=== PATIENT | male | born 1950 | race Caucasian/White ===

== ENCOUNTER → 2020-09-11 | Outpatient (CLI) | payer OTHER ==
--- NOTE | 2020-09-11 12:10 | 2DMMODE ---
[facility] [place] [address] 2 D/M-MODE ECHOCARDIOGRAM Name: BAMBI MALHOTRA Room #: REG ORTIZ [facility]org[facility].#: [id number] Admission: 09/11/20 Attend Phys: Wallace Jacobsen MD Discharge: Date of : 48 Report #: [id number] THIS REPORT FOR: cc: Myah Ledesma MD, Avan D. MD Park, Jin S. MD ~ APPROVED REPORT Study performed: 09/11/2020 10:57:36 EXAM: Comprehensive 2D, Doppler, and color-flow Echocardiogram Patient Location: Out-Patient Status: routine BSA: 1.97 HR: 70 bpm BP: 120/70 mmHg Rhythm: NSR/Frequent PVCs Other Information Study Quality: Adequate Technically limited study due to lung artifact. Indications CAD. Hx: MV and TV repairs. 2D Dimensions RVDd: 34.94 mm IVSd: 11.18 (7-11mm) LVOT Diam: 26.66 (18-24mm) LVDd: 48.63 mm PWd: 9.93 (7-11mm) Ascending Ao: 34.26 (22-36mm) LVDs: 37.32 (25-40mm) Aortic Root: 35.45 mm Volumes Left Atrial Volume (Systole) Single Plane 4CH: 52.31 mL Single Plane 2CH: 65.53 mL LA ESV Index: 35.00 mL/m2 Aortic Valve AoV Peak [place].: 1.36 m/s AO Peak Gr.: 7.42 mmHg LVOT Max P.84 mmHg [facility] [address] [place] [address] 2 D/M-MODE ECHOCARDIOGRAM Name: BAMBI MALHOTRA Room #: REG [facility].#: [id number] Admission: 09/11/20 Attend Phys: Wallace Jacobsen MD Discharge: Date of : 48 Report #: [id number] LVOT Max V: 0.84 m/s LILLIANA Vmax: 3.45 cm2 Mitral Valve E/A Ratio: 110.0 MV Decel. Time: 263.20 ms MV E Max [place].: 1.10 m/s MV A [place].: 0.01 m/s MV PHT: 76.33 ms MVA (PHT): 2.44 cm2 IVRT: 106.11 ms Pulmonary Valve PV Peak [place].: 1.11 m/s PV Peak Gr.: 4.97 mmHg Tricuspid Valve RAP Estimate: 5.00 mmHg Left Ventricle The left ventricle is normal size. There is normal left ventricular wall thickness. Left ventricular systolic function is normal. LVEF is 55%. Mild diastolic dysfunction is present (impaired relaxation pattern). Right Ventricle The right ventricle is normal size. The right ventricular systolic function is normal. Atria Left atrium is mildly dilated. The right atrium size is normal. Aortic Valve The aortic valve is normal in structure. Trace aortic regurgitation. There is no aortic valvular stenosis. Mitral Valve History of MV repair. Peak pressure gradient of 8mmHg; mean of 3mmHg. Mild mitral regurgitation. No evidence of mitral valve stenosis. Tricuspid Valve History of TV repair. Peak gradient of 5mmHg; mean of 1mmHg. There is no tricuspid valve stenosis. There is no tricuspid valve regurgitation noted. Unable to assess PA pressure. [facility] [place] [address] 2 D/M-MODE ECHOCARDIOGRAM Name: BAMBI MALHOTRA Room #: REG [facility]#: [id number] Admission: 09/11/20 Attend Phys: Wallace Jacobsen MD Discharge: Date of : 48 Report #: [id number] Pulmonic Valve The pulmonary valve is normal in structure. Mild to moderate pulmonic regurgitation. Great Vessels The aortic root is normal in size. The ascending aorta is normal in size. IVC is normal in size and collapses >50% with inspiration. Pericardium There is no pericardial effusion. <Conclusion> The left ventricle is normal size. There is normal left ventricular wall thickness. Left ventricular systolic function is normal. Mild diastolic dysfunction is present (impaired relaxation pattern). The right ventricle is normal size. Left atrium is mildly dilated. The aortic valve is normal in structure. History of MV repair. Peak pressure gradient of 8mmHg; mean of 3mmHg. Mild mitral regurgitation. History of TV repair. <ELECTRONICALLY SIGNED> By: Talat Rivas MD 09/11/201209 09 09 Talat Rivas MD /INF
== END ==
LOC: CV 08:51
PROVIDERS: ATTEND Orthopaedic Surgery
DX: I34.0 Nonrheumatic mitral (valve) insufficiency (principal); I25.10 Atherosclerotic heart disease of native coronary artery without angina pectoris